=== PATIENT | female | born 1970 | race African-American/Black ===

== ENCOUNTER 2021-03-15 01:12 | Emergency (ER) | payer SELFPAY ==
[~2021-03-15] VITALS: Ht 154.9 cm; Wt 91.0 kg
[2021-03-15] MEDS ORDERED: MORPHINE SULFATE 10 MG/ML CPJ IM ONE (01:45)
[2021-03-15] MEDS ORDERED: ONDANSETRON 4MG ODT PO ONE (02:15)
[2021-03-15 02:17] LABS: BASOPHILS % 0.8 % (0.0-2.0); EOSINOPHILS % 2.9 % (0.0-5.0); HEMATOCRIT. 45.4 % (36.0-48.0); HEMOGLOBIN. 15.2 g/dL (12.0-16.0); LYMPHOCYTES % 19.6 % (20.0-50.0); MEAN CORPUSCULAR HEMOGLOBIN 27.7 pg (28.0-32.0); MEAN CORPUSCULAR VOLUME 82.7 fL (81.0-99.0); MEAN PLATELET VOLUME 9.6 fl (7.4-10.4); MONOCYTES % 7.4 % (2.0-8.0); NEUTROPHILS % 69.3 % (40.0-76.0); PLATELET 205 x1000/uL (130-400); RED BLOOD CELL COUNT 5.49 mill/uL (4.2-5.4); RED CELL DISTRIBUTION WIDTH 16.7 % (11.6-14.6)
[2021-03-15 02:24] LABS: CHLORIDE 108 mEq/L (98-107)
[2021-03-15 02:34] LABS: CREATINE KINASE 451 IU/L (26-192)
[2021-03-15] MEDS ORDERED: NAPR-1176 MT (04:07)
[2021-03-15] MEDS ORDERED: CYCL10TA7 MT (04:08)
[2021-03-15 04:27] VITALS: BP 175/110
== END 2021-03-15 04:28 | disposition home or self-care (01) ==
LOC: ER 01:12
DX: S20.214A Contusion of middle front wall of thorax, initial encounter (principal); I11.0 Hypertensive heart disease with heart failure; I50.9 Heart failure, unspecified; V49.49XA Driver injured in collision with other motor vehicles in traffic accident, initial encounter; Y93.89 Activity, other specified; Y92.89 Other specified places as the place of occurrence of the external cause; Y99.8 Other external cause status
CPT/HCPCS: 36415; 71045; 80053; 81025; 82550; 84484; 85025; 93005; 96372; 99285; J2270; Q0162